=== PATIENT | male | born 1955 | race Caucasian/White ===

== ENCOUNTER 2020-05-20 10:55 | Emergency (ER) | payer MEDICARE, BC ==
[~2020-05-20] VITALS: Ht 172.7 cm; Wt 104.5 kg
[2020-05-20 12:04] VITALS: BP 140/81
== END 2020-05-20 12:06 | disposition home or self-care (01) ==
LOC: ED 11:36
DX: G51.0 Bell's palsy (principal); I10 Essential (primary) hypertension; E11.9 Type 2 diabetes mellitus without complications; E78.5 Hyperlipidemia, unspecified; Z85.07 Personal history of malignant neoplasm of pancreas
CPT/HCPCS: 99283